=== PATIENT | female | born 1980 | race Two or more races ===

== ENCOUNTER 2018-07-31 08:04 | Emergency (ER) | payer OTHER ==
[~2018-07-31] VITALS: Ht 160 cm; Wt 54.4 kg
[~2018-07-31 08:04] MED LIST: AMOX1TAB12 PO
[2018-07-31] MEDS ORDERED: IBUPROFEN800 MG PO (10:01)
== END 2018-07-31 22:10 | disposition home or self-care (01) ==
LOC: ER 08:04
DX: M75.81 Other shoulder lesions, right shoulder (principal)